=== PATIENT | male | born 1995 | race Caucasian/White ===

== ENCOUNTER 2020-02-18 09:21 | Outpatient (CLI) | payer OTHER | END 2020-02-18 23:59 | disposition home or self-care (01) | LOC: STAR 09:21 | PROVIDERS: ATTEND Orthopaedic Surgery | DX: Z02.9 Encounter for administrative examinations, unspecified (principal) ==

== ENCOUNTER 2020-02-22 11:46 | Day surgery (SDC) | payer OTHER ==
[~2020-02-22] VITALS: Ht 182.9 cm; Wt 134.0 kg
[2020-02-22] MEDS ORDERED: LACTATED RINGERS 1,000 ML IV SCH (11:59)
[2020-02-22] MEDS ORDERED: CHLORHEXIDINE 15 ML UDC MM ONE (12:00)
[2020-02-22] MEDS ORDERED: MIDAZOLAM 1 MG/ML, 2ML ONE (12:07)
[2020-02-22] MEDS ORDERED: FENTANYL PF 250 MCG/5ML ONE (12:07)
[2020-02-22] MEDS ORDERED: ROCURONIUM 10MG/ML,5ML ONE (12:11)
[2020-02-22] MEDS ORDERED: GLYCOPYRROLATE 0.2MG/1ML, 5ML ONE (12:11)
[2020-02-22] MEDS ORDERED: NEOSTIGMINE 1 MG/ML, 10ML ONE (12:11)
[2020-02-22] MEDS ORDERED: PROPOFOL 10 MG/ML, 20ML ONE (12:11)
[2020-02-22] MEDS ORDERED: CEFAZOLIN 1,000 MG ONE ×2 (12:11→13:02)
[2020-02-22 12:13] VITALS: BP 131/89
[2020-02-22] MEDS ORDERED: GABAPENTIN 300 MG CAPSULE PO ONE (12:30)
[2020-02-22] MEDS ORDERED: ACETAMINOPHEN 500 MG TABLET PO ONE (12:30)
[2020-02-22] MEDS ORDERED: hydrALAzine 20 MG/ML, 1ML IV PRN (13:00)
[2020-02-22] MEDS ORDERED: LABETALOL 5MG/ML, 20ML IV PRN (13:00)
[2020-02-22] MEDS ORDERED: HYDROmorphone 1 MG/ML, 1ML INJ IVPush PRN (13:00)
[2020-02-22] MEDS ORDERED: ONDANSETRON 2MG/ML, 2ML IVPush PRN (13:00)
[2020-02-22] MEDS ORDERED: morphine SULFATE 10 MG/ML, 1ML IVPush PRN (13:00)
[2020-02-22] MEDS ORDERED: MEPERIDINE/PF 25MG/0.5ML IVPush PRN (13:00)
[2020-02-22] MEDS ORDERED: OXYcodone 5 MG/5 ML ORAL.SOL UDC PO PRN (13:00)
[2020-02-22] MEDS ORDERED: VANCOMYCIN 1,000 MG ONE (13:13)
[2020-02-22] MEDS ORDERED: SUGAMMADEX 200 MG/2 ML IVPush ONE ×2 (13:36)
[2020-02-22] MEDS ORDERED: BACITRACIN ZINC OINT 500U/GM, 0.9 GM ONE (13:51)
[2020-02-22] MEDS ORDERED: FENTANYL PF 100 MCG/2ML ONE (14:16)
[2020-02-22] MEDS ORDERED: OXYcodone 5 MG/5 ML ORAL.SOL UDC ONE (14:16)
[2020-02-22] MEDS: FENTANYL PF 100 MCG/2ML IV PRN ×2 (14:18→14:25)
== END 2020-02-22 16:25 | disposition home or self-care (01) ==
LOC: OUT 11:46
PROVIDERS: ATTEND Orthopaedic Surgery
DX: S14.3XXA Injury of brachial plexus, initial encounter (principal); Z11.59 Encounter for screening for other viral diseases; L03.011 Cellulitis of right finger; L98.499 Non-pressure chronic ulcer of skin of other sites with unspecified severity; V29.88XA Motorcycle rider (driver) (passenger) injured in other specified transport accidents, initial encounter; Y93.89 Activity, other specified; Y92.89 Other specified places as the place of occurrence of the external cause; Y99.8 Other external cause status
CPT/HCPCS: 24900; 88307; 88311; J0690; J2250; J2704; J2710; J3010; J3370; J7120; U0001